=== PATIENT | female | born 1995 | race Caucasian/White ===

== ENCOUNTER → 2021-12-30 | Outpatient (CLI) | payer MEDICARE, BC ==
[~2021-12-30] MED LIST: HYDR-3165 PO; IOHEXOL 350 MG/ML 100 ML VIAL. ONE; METO5TAB55 PO; ONDA4TAB10 PO
[2021-12-30] MEDS: IOHEXOL 350 MG/ML 100 ML VIAL. IV ONE (15:32)
--- NOTE | 2021-12-30 15:42 | RAD ---
Examination: CT angiography chest with IV contrast HISTORY: History of chest pain, shortness of breath COMPARISON: None available TECHNIQUE: Axial CT angiographic images of chest were performed with IV contrast. Coronal and sagitta l 3-D MIP reformats are performed Exposure: One or more of the following individualized dose reduction techniques were utilized for thi s examination: 1. Automated exposure control 2. Adjustment of the mA and/or kV according to patient size 3. Use of iterative reconstruction technique FINDINGS: The visualized thyroid gland grossly appears unremarkable. The central airways are patent. The ascen ding aorta measures 2.6 cm in transverse dimension. There is no evidence of filling defect identified in the main pulmonary arterial trunk and right and left main pulmonary arteries and the visualized l obar, segmental branches of pulmonary arteries. Mild bibasilar lung atelectasis. No evidence of lytic bony destructive lesion. IMPRESSION: 1. No evidence of pulmonary embolism. 2. Mild bibasilar lung atelectasis. Electronically signed by: Jason Mata MD (12/30/2021 3:39 PM) [id number]
== END ==
LOC: CT 14:19
PROVIDERS: ATTEND Internal Medicine
DX: J98.11 Atelectasis (principal)
CPT/HCPCS: 71275; Q9967